=== PATIENT | female | born 2000 | race Two or more races ===

== ENCOUNTER 2024-10-09 16:52 | Emergency (ER) | payer OTHER ==
[~2024-10-09] VITALS: Ht 152.4 cm; Wt 51.7 kg
[2024-10-09] MEDS ORDERED: PRENATA CHEWAB1 EACH PO (17:00)
[2024-10-09 18:03] LABS: BASO % 0.3 % (0.1-1.2); EOS # 0.15 (0.04-0.54); EOS % 1.5 % (0.7-7.0); HEMATOCRIT 31.9 % (34.1-44.9); HEMOGLOBIN 10.9 g/dL (11.2-15.7); LYMPH # 2.42 (1.18-3.74); LYMPH % 23.8 % (19.3-53.1); MEAN CORPUSCULAR HEMOGLOBIN 30.1 pg (25.6-32.2); MONO # 0.73 (0.24-0.82); MONO % 7.2 % (4.7-12.5); NEUT % 66.9 % (34.0-71.1); PLATELET COUNT 287 K/uL (163-369); RED BLOOD COUNT 3.62 M/uL (3.93-5.22); RED CELL DISTRIBUTION WIDTH 12.8 % (11.6-14.4)
== END 2024-10-09 19:25 | disposition home or self-care (01) ==
LOC: ER 19:19
PROVIDERS: General Practice
DX: O20.9 Hemorrhage in early pregnancy, unspecified (principal); Z3A.09 9 weeks gestation of pregnancy; Z88.6 Allergy status to analgesic agent; Z88.0 Allergy status to penicillin

== ENCOUNTER 2024-10-17 12:55 | Emergency (ER) | payer OTHER ==
[~2024-10-17] VITALS: Ht 152.4 cm; Wt 51.7 kg
[~2024-10-17 12:55] MED LIST: PRENATA CHEWAB1 EACH PO
[2024-10-17 15:27] LABS: BASO % 0.3 % (0.1-1.2); EOS # 0.34 (0.04-0.54); EOS % 2.8 % (0.7-7.0); HEMATOCRIT 34.1 % (34.1-44.9); HEMOGLOBIN 11.8 g/dL (11.2-15.7); LYMPH # 2.19 (1.18-3.74); LYMPH % 18.2 % (19.3-53.1); MEAN CORPUSCULAR HEMOGLOBIN 30.6 pg (25.6-32.2); MONO # 0.76 (0.24-0.82); MONO % 6.3 % (4.7-12.5); NEUT # 8.67 (1.56-6.13); PLATELET COUNT 324 K/uL (163-369); RED BLOOD COUNT 3.85 M/uL (3.93-5.22); RED CELL DISTRIBUTION WIDTH 13.2 % (11.6-14.4)
[2024-10-17 16:06] LABS: CALCIUM 9.1 mg/dL (8.5-10.1); CREATININE SERUM 0.42 mg/dL (0.55-1.02); GFR 183.83; POTASSIUM 4.04 mEq/L (3.5-5.1)
[2024-10-17 16:37] LABS: PH,URINE 6.5 (5.0-8.0); URINE APPEARANCE Clear; URINE BILIRRUBIN Negative (NEGATIVE); URINE COLOR Dark Yellow; URINE GLUCOSE Negative (NEGATIVE); URINE KETONE Negative (NEGATIVE); URINE LEUKOCYTE Small; URINE NITRATE Negative; URINE PROTEIN 30 (NEGATIVE)
[2024-10-17 16:41] LABS: URINE BACTERIA 155.4 uL (0.0-1933); URINE EPITHELIAL CELLS 13.7 uL (0.0-38.8); URINE RBC 46.2 uL (0.0-20.8); URINE WBC 37.8 uL (0.0-23.2)
[2024-10-17 16:45] LABS: URINE BLOOD TRACE
== END 2024-10-17 17:04 | disposition home or self-care (01) ==
LOC: ER 12:55
PROVIDERS: General Practice
DX: O23.41 Unspecified infection of urinary tract in pregnancy, first trimester (principal); N39.0 Urinary tract infection, site not specified; Z3A.10 10 weeks gestation of pregnancy; Z88.6 Allergy status to analgesic agent; Z88.0 Allergy status to penicillin